=== PATIENT | female | born 1980 | race Caucasian/White ===

== ENCOUNTER 2018-12-31 14:31 | Inpatient (IN) | payer OTHER ==
[2018-12-31 17:13] VITALS: BMI 30.5
--- NOTE | 2018-12-31 17:35 | HP ---
CIWA Score Nausea/Vomitin (vomit x2) Muscle Tremors: None Anxiety: 2 Agitation: 0-Normal Activity Paroxysmal Sweats: No Perspiration Orientation: 0-Oriented Tacttile Disturbances: 0-None Auditory Disturbances: 2-Mild Harshness/Frighten Visual Disturbances: 2-Mild Sensitivity Headache: 3-Moderate CIWA-Ar Total Score: 12 - Admission Criteria OAS Guidelines: Admission for Medically Managed Detox: Requires at least one of the followin. CIWA greater than 12 2. Seizures within the past 24 hours 3. Delirium tremens within the past 24 hours 4. Hallucinations within the past 24 hours 5. Acute intervention needed for co occurring medical disorder 6. Acute intervention needed for co occurring psychiatric disorder 7. Severe withdrawal that cannot be handled at a lower level of care (continued vomiting, continued diarrhea, abnormal vital signs) requiring intravenous medication and/or fluids 8. Patient presents the following: CIWA greater than 12, Acute intervention needed for co-occurring med or psych disorder Admission Criteria Met: Admission criteria met Admission ROS S - HPI Chief Complaint: " I need help" Allergies/Adverse Reactions: Allergies Allergy/AdvReac Type Severity Reaction Status Date / Time cephalexin [From Keflex] AdvReac Severe Verified 12/31/18 16:53 buspirone [From BuSpar] AdvReac Verified 12/31/18 16:53 haloperidol AdvReac Verified 12/31/18 16:55 History of Present Illness: 38 yo female with hx of nicotine , alcohol, xanax, crack /cocaine dependence is here seeking detox. MMTP Klaudia Young MMTP on methadone 120 mg, last dose today. PMHX: OA, seizure d/o reports no meds. Seizure, last seizure two months ago. Psych: anxiety , ADHD, depression on meds. Reports hx of suicide attempt x2 , with last attempt six months ago and admission to psych taylor at [facility]. Denies blackouts. Exam Limitations: No Limitations - Ebola screening Have you traveled outside of the country in the last 21 days: No (N) Have you had contact with anyone from an Ebola affected area: No Do you have a fever: No - Review of Systems Constitutional: Chills, Loss of Appetite, Weakness, Unintentional Wgt. Loss EENT: reports: No Symptoms Reported Respiratory: reports: No Symptoms reported Cardiac: reports: No Symptoms Reported GI: reports: Diarrhea, Nausea, Poor Appetite, Poor Fluid Intake, Vomiting : reports: No Symptoms Reported Musculoskeletal: reports: Back Pain Integumentary: reports: No Symptoms Reported Neuro: reports: Headache Endocrine: reports: Increased Thirst Hematology: reports: No Symptoms Reported Psychiatric: reports: Orientated x3, Depressed Other Systems: Reviewed and Negative Patient History - Patient Medical History Hx Anemia: No Hx Asthma: No Hx Chronic Obstructive Pulmonary Disease (COPD): No Hx Cancer: No Hx Cardiac Disorders: No Hx Congestive Heart Failure: No Hx Hypertension: No Hx Hypercholesterolemia: No Hx Pacemaker: No HX Cerebrovascular Accident: No Hx Seizures: Yes (no meds, two months ago) Hx Dementia: No Hx Diabetes: No Hx Gastrointestinal Disorders: No Hx Liver Disease: No Hx Genitourinary Disorders: No Hx Sexually Transmitted Disorders: No Hx Renal Disease (ESRD): No Hx Thyroid Disease: No Hx Hepatitis C: No Hx Depression: Yes Hx Suicide Attempt: Yes (x 2, six months) Hx Bipolar Disorder: No Hx Schizophrenia: No - Patient Surgical History Past Surgical History: Yes Other Surgical History: Gallbladder removal - PPD History Previous Implant?: No Documented Results: Negative w/o proof PPD to be Administered?: Yes - Reproductive History Patient is a Female of Child Bearing Age (11 -55 yrs old): Yes Last Menstrual Period: 09/22/18 Patient : No - Smoking Cessation Smoking history: Current every day smoker Have you smoked in the past 12 months: Yes Aproximately how many cigarettes per day: 20 Hx Chewing Tobacco Use: No Initiated information on smoking cessation: Yes 'Breaking Loose' booklet given: 12/31/18 - Substance & Tx. History Hx Alcohol Use: Yes Hx Substance Use: Yes Substance Use Type: Alcohol Hx Substance Use Treatment: Yes (Last detox in " [place] several months ago") - Substances abused Alcohol Substance route: Oral Frequency: Daily Amount used: 2 bottles of yuko or 4 Locos Age of first use: 18 Date of last use: 12/31/18 Alprazolam (Xanax) Substance route: Oral Frequency: 3-6 times per week Amount used: about 4 mg total Age of first use: 35 Date of last use: 12/25/18 Other Other (specify): Klonopin Substance route: Oral Frequency: Daily Amount used: 10 t0 12 mg Age of first use: 37 Date of last use: 12/28/18 Cocaine Substance route: Smoking Frequency: 1-2 times per week Amount used: half a gram Age of first use: 32 Date of last use: 12/25/18 Family Disease History - Family Disease History Family History: Denies Admission Physical Exam [facility] - Vital Signs Vital Signs: Vital Signs - 24 hr 12/31/18 16:59 Temperature 97.0 F L Pulse Rate 87 Respiratory 14 Rate Blood Pressure 108/64 - Physical General Appearance: Yes: Disheveled, Alcohol on Breath, Obese, Sweating, Other ( sleepy and nodding attributes to alcohol use with methadone) HEENTM: Yes: Hearing grossly Normal, Normal ENT Inspection, Normocephalic, Normal Voice, FER, Pharynx Normal, Tm's normal Respiratory: Yes: Chest Non-Tender, Lungs Clear, Normal Breath Sounds, No Respiratory Distress, No Accessory Muscle Use Neck: Yes: Within Normal Limits Breast: Yes: Breast Exam Deferred Cardiology: Yes: Regular Rhythm, Regular Rate Abdominal: Yes: Normal Bowel Sounds, Non Tender, Flat, Soft Genitourinary: Yes: Within Normal Limits Back: Yes: Normal Inspection Musculoskeletal: Yes: full range of Motion, Gait Steady, Pelvis Stable, Back pain Extremities: Yes: Normal Capillary Refill, Normal Inspection, Normal Range of Motion, Non-Tender Neurological: Yes: clinical quality assurance specialist II-XII NML intact, Fully Oriented, Alert, Motor Strength 5/5, Depressed Affect Integumentary: Yes: Normal Color, Warm, Diaphoresis Lymphatic: Yes: Within Normal Limits - Diagnostic (1) Alcohol dependence with uncomplicated withdrawal Current Visit: Yes Status: Acute (2) ADHD Current Visit: Yes Status: Chronic Qualifiers: Attention deficit-hyperactivity disorder type: unspecified Qualified Code(s ): F90.9 - Attention-deficit hyperactivity disorder, unspecified type (3) Seizure Current Visit: Yes Status: Acute (4) Arthritis Current Visit: Yes Status: Acute (5) Opioid dependence on agonist therapy Current Visit: Yes Status: Chronic Comment: on methadone maintace 120 mg qd , alst dose today , dose pending verification (6) Nicotine dependence Current Visit: Yes Status: Chronic Qualifiers: Nicotine product type: cigarettes Cleared for Admission [facility] - Detox or Rehab [facility] Level of Care: Medically Managed Detox Regimen/Protocol: Librium Breathalyzer - Breathalyzer Breathalyzer: 0 POC Urine test - Test device test lot number: [id number] Expiration date: 05/22/20 - Control test control: Yes - Result Urine Test Results: Negative - NO line present Urine Drug Screen - Test Device Lot number: [id number] Expiration date: 12/20/19 - Control Is test valid?: Yes - Results Drug screen NEGATIVE: No Urine drug screen results: MTD-Methadone Inpatient Rehab Admission - Rehab Decision to Admit Inpatient rehab admission?: No
[2018-12-31] MEDS ORDERED: MAGNESIUM HYDROX 2400MG/30ML ORAL SUSPENSION 30 ML CUP PO PRN ×2 (17:54→18:10)
[2018-12-31] MEDS ORDERED: MELATONIN 5 MG TABLETS PO PRN (17:54)
[2018-12-31] MEDS ORDERED: NICOTINE POLACRILEX 2 MG GUM BUC PRN (17:54)
[2018-12-31] MEDS ORDERED: BISMUTH SUBSALICYLATE 524 MG/30 ML UD PO PRN (17:54)
[2018-12-31] MEDS ORDERED: METHOCARBAMOL 500 MG TABLET PO PRN (17:54)
[2018-12-31] MEDS ORDERED: MAGNESIUM CITRATE 300 ML BOTTLE PO PRN (17:54)
[2018-12-31] MEDS ORDERED: MAG HYDROX/AL HYDROX/SIMETH 30 ML UNIT-DOSE CUP PO PRN (17:54)
[2018-12-31] MEDS ORDERED: MENTHOL/PHENOL 1 EACH UD MM PRN (17:54)
[2018-12-31] MEDS ORDERED: ACETAMINOPHEN 325 MG TABLET (FP) PO PRN ×2 (17:54)
[2018-12-31] MEDS: chlordiazePOXIDE HCL 10 MG CAPSULE PO PRN (19:08)
[2018-12-31] MEDS: chlordiazePOXIDE HCL 25 MG CAPSULE PO SCH (22:03)
[2018-12-31] MEDS: THIAMINE HCL 100 MG TABLET (FP) PO SCH (22:03)
[2018-12-31 23:35] LABS: URINE APPEARANCE Clear; URINE BILIRUBIN Negative (NEGATIVE); URINE COLOR Yellow; URINE GLUCOSE (UA) Negative (NEGATIVE); URINE KETONE Negative (NEGATIVE); URINE LEUK ESTERASE 1+ (NEGATIVE); URINE NITRITE Negative (NEGATIVE); URINE PROTEIN Negative (NEGATIVE); URINE UROBILINOGEN 0.2 mg/dL (0.2-1.0)
[2018-12-31 23:55] LABS: URINE BACTERIA FEW /hpf (NEGATIVE); URINE RBC 0 /hpf (0-4)
[2019-01-01] MEDS: chlordiazePOXIDE HCL 25 MG CAPSULE PO SCH ×2 (05:55→12:32)
[2019-01-01] MEDS: hydrOXYzine PAMOATE 25 MG CAPSULE (FP) PO PRN ×2 (08:56→17:14)
[2019-01-01 09:50] LABS: HEMATOCRIT 35.2 % (32.4-45.2); MCH 30.8 pg (25.7-33.7); MCHC 34.1 g/dl (32.0-36.0); MEAN CELL VOLUME 90.2 fl (80-96); MEAN PLT VOLUME 8.7 fl (7.5-11.1); PLATELET COUNT 218 K/MM3 (134-434); RBC 3.91 M/mm3 (3.60-5.2); RDW 15.1 % (11.6-15.6); WHITE BLOOD COUNT 4.7 K/mm3 (4.0-10.0)
[2019-01-01 10:04] LABS: ALBUMIN 3.4 g/dl (3.4-5.0); ALK PHOS 49 U/L (45-117); ANION GAP 6 MMOL/L (8-16); BILIRUBIN,TOTAL 0.2 mg/dL (0.2-1); BLOOD UREA NITROGEN 15 mg/dL (7-18); CALCIUM 8.6 mg/dL (8.5-10.1); CHLORIDE 106 mmol/L (98-107); CO2 28 mmol/L (21-32); CREATININE 0.8 mg/dL (0.55-1.3); GLUCOSE,RANDOM 95 mg/dL (74-106); POTASSIUM 4.4 mmol/L (3.5-5.1); SGOT/AST 15 U/L (15-37); SGPT/ALT 14 U/L (13-61); SODIUM 140 mmol/L (136-145); TOT PROT 6.3 g/dl (6.4-8.2)
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
[2019-01-01] MEDS: NICOTINE 14 MG/24 HOURS TOPICAL PATCH TD SCH (10:18)
[2019-01-01] MEDS: PRENATAL VITAMINS W/ FOLIC ACID TABLET (FP) PO SCH (10:19)
[2019-01-01] MEDS ORDERED: METHADONE HCL 40 MG DISPERSABLE TABLET PO ONE (10:30)
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
--- NOTE | 2019-01-01 13:44 | EKG ---
Test Reason : Blood Pressure : / mmHG Vent. Rate : 075 BPM Atrial Rate : 075 BPM P-R Int : 158 ms QRS Dur : 082 ms QT Int : 424 ms P-R-T Axes : 069 052 050 degrees QTc Int : 473 ms NORMAL SINUS RHYTHM WITH SINUS ARRHYTHMIA CANNOT RULE OUT ANTERIOR INFARCT , AGE UNDETERMINED ABNORMAL ECG NO PREVIOUS ECGS AVAILABLE Confirmed by HENRY MUHAMMAD MD ([id number]) on 01/01/2019 1:44:33 PM Referred By: Confirmed By:HENRY MUHAMMAD MD
--- NOTE | 2019-01-01 14:01 | PN ---
[facility] CIWA - CIWA Score Nausea/Vomitin-No Nausea/No Vomiting Muscle Tremors: 4-Moderate,w/Arms Extend Anxiety: 4-Mod. Anxious/Guarded Agitation: 4-Moderately Restless Paroxysmal Sweats: 3 Orientation: 0-Oriented Tacttile Disturbances: 0-None Auditory Disturbances: 0-None Visual Disturbances: 0-None Headache: 0-None Present CIWA-Ar Total Score: 15 B[facility] Progress Note (SOAP) Subjective: anxiety shakes sweats irritable agitation Objective: 01/01/19 14:00 Vital Signs Temperature 98.1 F 01/01/19 10:33 Pulse Rate 84 01/01/19 10:33 Respiratory Rate 18 01/01/19 10:33 Blood Pressure 120/78 01/01/19 10:33 O2 Sat by Pulse Oximetry (%) Laboratory Tests 12/31/18 01/01/19 01/01/19 22:15 07:00 07:00 WBC 4.7 RBC 3.91 Hgb 12.0 Hct 35.2 MCV 90.2 MCH 30.8 MCHC 34.1 RDW 15.1 Plt Count 218 MPV 8.7 Sodium 140 Potassium 4.4 Chloride 106 Carbon Dioxide 28 Anion Gap 6 L BUN 15 Creatinine 0.8 Creat Clearance w eGFR 81.16 Random Glucose 95 Calcium 8.6 Total Bilirubin 0.2 AST 15 ALT 14 Alkaline Phosphatase 49 Total Protein 6.3 L Albumin 3.4 Urine Color Yellow Urine Appearance Clear Urine pH 5.0 Ur Specific [place] <= 1.005 L Urine Protein Negative Urine Glucose (UA) Negative Urine Ketones Negative Urine Blood Negative Urine Nitrite Negative Urine Bilirubin Negative Urine Urobilinogen 0.2 Ur Leukocyte Esterase 1+ H Urine WBC (Auto) 5-10 Urine RBC (Auto) 0 U Epithel Cells (Auto) 2-5 Urine Bacteria (Auto) Few RPR Titer 01/01/19 07:00 WBC RBC Hgb Hct MCV MCH MCHC RDW Plt Count MPV Sodium Potassium Chloride Carbon Dioxide Anion Gap BUN Creatinine Creat Clearance w eGFR Random Glucose Calcium Total Bilirubin AST ALT Alkaline Phosphatase Total Protein Albumin Urine Color Urine Appearance Urine pH Ur Specific [place] Urine Protein Urine Glucose (UA) Urine Ketones Urine Blood Urine Nitrite Urine Bilirubin Urine Urobilinogen Ur Leukocyte Esterase Urine WBC (Auto) Urine RBC (Auto) U Epithel Cells (Auto) Urine Bacteria (Auto) RPR Titer Nonreactive aaox3 ambulating no acute distress Assessment: 01/01/19 14:00 withdrawal sx Plan: continue detox increase fluids
[2019-01-01] MEDS ORDERED: GABAPENTIN 300 MG CAPSULE (FP) PO ONE (15:05)
[2019-01-01] MEDS: chlordiazePOXIDE HCL 10 MG CAPSULE PO PRN (17:14)
--- NOTE | 2019-01-01 18:10 | PN ---
[facility] Progress Note Note: Psychiatric nurse practitoner note: Patient with a history of seizure disorder. Last seizure was two months ago. As per patient, the cause of her seizures are unknown. She also reports additional seizures when withdrawing from alcohol. She is currently not prescribed anticonvulsants for seizures and was accepting wellbutrin 100mg BID. Due to h/o seizures, Wellbutrin will not be ordered as it is contraindicated. Patient is currently prescribed gabapentin 600mg TID but reports taking it for chronic pain. As per external records patient has been prescribed keppra in the past but is no longer accepting that medication. Wellbutrin 150mg XL will be D/C. Patient and nursing staff informed.
[2019-01-01] MEDS: chlordiazePOXIDE 5 MG CAPSULE PO SCH (21:59)
[2019-01-01] MEDS: THIAMINE HCL 100 MG TABLET (FP) PO SCH (21:59)
[2019-01-01] MEDS: IBUPROFEN 400 MG TABLET (FP) PO PRN (21:59)
[2019-01-01] MEDS ORDERED: PATIENT'S OWN MEDICATION (NON-FORMULARY) (Gabapentin [Neurontin] 600 MG) PO SCH (22:00)
[2019-01-01] MEDS ORDERED: GABAPENTIN 900 MG PO SCH (22:00)
[2019-01-01] MEDS: traZODone HCL 50 MG TABLET (FP) PO SCH (22:09)
[2019-01-01] MEDS: GABAPENTIN 300 MG CAPSULE (FP) PO SCH (22:32)
[2019-01-02] MEDS: METHADONE HCL 40 MG DISPERSABLE TABLET PO SCH (05:33)
[2019-01-02] MEDS: chlordiazePOXIDE 5 MG CAPSULE PO SCH ×2 (05:35→12:10)
[2019-01-02] MEDS: GABAPENTIN 300 MG CAPSULE (FP) PO SCH ×3 (05:36→22:18)
--- NOTE | 2019-01-02 10:05 | PN ---
S CIWA - CIWA Score Nausea/Vomitin Muscle Tremors: 2 Anxiety: 2 Agitation: 2 Paroxysmal Sweats: 2 Orientation: 0-Oriented Tacttile Disturbances: 2-Mild Itch/Numbness/Burn Auditory Disturbances: 0-None Visual Disturbances: 0-None Headache: 2-Mild CIWA-Ar Total Score: 14 S Progress Note (SOAP) Subjective: Shakes, sweats, headache, nausea w/ abdominal cramps Objective: 01/02/19 10:04 Vital Signs - 8 hr 01/02/19 01/02/19 03:30 06:33 Temperature 97.7 F Pulse Rate 83 Respiratory 18 18 Rate Blood Pressure 103/54 L Laboratory Last Values WBC 4.7 K/mm3 (4.0-10.0) 01/01/19 07:00 RBC 3.91 M/mm3 (3.60-5.2) 01/01/19 07:00 Hgb 12.0 GM/dL (10.7-15.3) 01/01/19 07:00 Hct 35.2 % (32.4-45.2) 01/01/19 07:00 MCV 90.2 fl (80-96) 01/01/19 07:00 MCH 30.8 pg (25.7-33.7) 01/01/19 07:00 MCHC 34.1 g/dl (32.0-36.0) 01/01/19 07:00 RDW 15.1 % (11.6-15.6) 01/01/19 07:00 Plt Count 218 K/MM3 (134-434) 01/01/19 07:00 MPV 8.7 fl (7.5-11.1) 01/01/19 07:00 Sodium 140 mmol/L (136-145) 01/01/19 07:00 Potassium 4.4 mmol/L (3.5-5.1) 01/01/19 07:00 Chloride 106 mmol/L (98-107) 01/01/19 07:00 Carbon Dioxide 28 mmol/L (21-32) 01/01/19 07:00 Anion Gap 6 MMOL/L (8-16) L 01/01/19 07:00 BUN 15 mg/dL (7-18) 01/01/19 07:00 Creatinine 0.8 mg/dL (0.55-1.3) 01/01/19 07:00 Creat Clearance w eGFR 81.16 (>60) 01/01/19 07:00 Random Glucose 95 mg/dL (74-106) 01/01/19 07:00 Calcium 8.6 mg/dL (8.5-10.1) 01/01/19 07:00 Total Bilirubin 0.2 mg/dL (0.2-1) 01/01/19 07:00 AST 15 U/L (15-37) 01/01/19 07:00 ALT 14 U/L (13-61) 01/01/19 07:00 Alkaline Phosphatase 49 U/L (45-117) 01/01/19 07:00 Total Protein 6.3 g/dl (6.4-8.2) L 01/01/19 07:00 Albumin 3.4 g/dl (3.4-5.0) 01/01/19 07:00 Urine Color Yellow 12/31/18 22:15 Urine Appearance Clear 12/31/18 22:15 Urine pH 5.0 (5.0-8.0) 12/31/18 22:15 Ur Specific [place] <= 1.005 (1.010-1.035) L 12/31/18 22:15 Urine Protein Negative (NEGATIVE) 12/31/18 22:15 Urine Glucose (UA) Negative (NEGATIVE) 12/31/18 22:15 Urine Ketones Negative (NEGATIVE) 12/31/18 22:15 Urine Blood Negative (NEGATIVE) 12/31/18 22:15 Urine Nitrite Negative (NEGATIVE) 12/31/18 22:15 Urine Bilirubin Negative (NEGATIVE) 12/31/18 22:15 Urine Urobilinogen 0.2 mg/dL (0.2-1.0) 12/31/18 22:15 Ur Leukocyte Esterase 1+ (NEGATIVE) H 12/31/18 22:15 Urine WBC (Auto) 5-10 /hpf (0-5) 12/31/18 22:15 Urine RBC (Auto) 0 /hpf (0-4) 12/31/18 22:15 U Epithel Cells (Auto) 2-5 /HPF (0-5/HPF) 12/31/18 22:15 Urine Bacteria (Auto) Few /hpf (NEGATIVE) 12/31/18 22:15 POC Urine HCG, Qual Negative 12/31/18 17:26 RPR Titer Nonreactive (NONREACTIVE) 01/01/19 07:00 Labs noted Assessment: 01/02/19 10:05 Withdrawal sx Plan: Continue detox
[2019-01-02] MEDS: PRENATAL VITAMINS W/ FOLIC ACID TABLET (FP) PO SCH (10:06)
[2019-01-02] MEDS: NICOTINE 14 MG/24 HOURS TOPICAL PATCH TD SCH (10:07)
[2019-01-02] MEDS: hydrOXYzine PAMOATE 25 MG CAPSULE (FP) PO PRN (13:24)
[2019-01-02] MEDS: chlordiazePOXIDE HCL 10 MG CAPSULE PO PRN (16:56)
[2019-01-02] MEDS ORDERED: chlordiazePOXIDE HCL 10 MG CAPSULE PO PRN (21:00)
[2019-01-02] MEDS: chlordiazePOXIDE HCL 10 MG CAPSULE PO SCH (22:18)
[2019-01-02] MEDS: traZODone HCL 50 MG TABLET (FP) PO SCH (22:18)
[2019-01-02] MEDS: THIAMINE HCL 100 MG TABLET (FP) PO SCH (22:19)
[2019-01-03] MEDS: METHADONE HCL 40 MG DISPERSABLE TABLET PO SCH (05:17)
[2019-01-03] MEDS: chlordiazePOXIDE HCL 10 MG CAPSULE PO SCH ×3 (05:17→22:18)
[2019-01-03] MEDS: GABAPENTIN 300 MG CAPSULE (FP) PO SCH ×3 (05:17→22:18)
[2019-01-03] MEDS: IBUPROFEN 400 MG TABLET (FP) PO PRN (05:20)
[2019-01-03] MEDS: PRENATAL VITAMINS W/ FOLIC ACID TABLET (FP) PO SCH (09:32)
[2019-01-03] MEDS: hydrOXYzine PAMOATE 25 MG CAPSULE (FP) PO PRN ×3 (09:36→22:18)
[2019-01-03] MEDS: NICOTINE 14 MG/24 HOURS TOPICAL PATCH TD SCH (09:48)
--- NOTE | 2019-01-03 13:33 | PN ---
[facility] Progress Note Note: PATIENT CONTINUES WITH DETOX REGIMEN FOR ETOH/BZO WITHDRAWAL. PATIENT C/O ANXIETY AND CONSTIPATION. Vital Signs Temperature 97.5 F L 01/03/19 09:30 Pulse Rate 90 01/03/19 09:30 Respiratory Rate 16 01/03/19 09:30 Blood Pressure 101/58 L 01/03/19 09:30 O2 Sat by Pulse Oximetry (%) Laboratory Tests 12/31/18 12/31/18 01/01/19 17:26 22:15 07:00 WBC 4.7 RBC 3.91 Hgb 12.0 Hct 35.2 MCV 90.2 MCH 30.8 MCHC 34.1 RDW 15.1 Plt Count 218 MPV 8.7 Sodium Potassium Chloride Carbon Dioxide Anion Gap BUN Creatinine Creat Clearance w eGFR Random Glucose Calcium Total Bilirubin AST ALT Alkaline Phosphatase Total Protein Albumin Urine Color Yellow Urine Appearance Clear Urine pH 5.0 Ur Specific [place] <= 1.005 L Urine Protein Negative Urine Glucose (UA) Negative Urine Ketones Negative Urine Blood Negative Urine Nitrite Negative Urine Bilirubin Negative Urine Urobilinogen 0.2 Ur Leukocyte Esterase 1+ H Urine WBC (Auto) 5-10 Urine RBC (Auto) 0 U Epithel Cells (Auto) 2-5 Urine Bacteria (Auto) Few POC Urine HCG, Qual Negative RPR Titer 01/01/19 01/01/19 07:00 07:00 WBC RBC Hgb Hct MCV MCH MCHC RDW Plt Count MPV Sodium 140 Potassium 4.4 Chloride 106 Carbon Dioxide 28 Anion Gap 6 L BUN 15 Creatinine 0.8 Creat Clearance w eGFR 81.16 Random Glucose 95 Calcium 8.6 Total Bilirubin 0.2 AST 15 ALT 14 Alkaline Phosphatase 49 Total Protein 6.3 L Albumin 3.4 Urine Color Urine Appearance Urine pH Ur Specific [place] Urine Protein Urine Glucose (UA) Urine Ketones Urine Blood Urine Nitrite Urine Bilirubin Urine Urobilinogen Ur Leukocyte Esterase Urine WBC (Auto) Urine RBC (Auto) U Epithel Cells (Auto) Urine Bacteria (Auto) POC Urine HCG, Qual RPR Titer Nonreactive PE: ALERT AND ORIENTED X 3 SKIN WARM AND DRY GI SOFT, NT, ND EXT NO VISIBLE TREMORS, FULL ROM, AMB AD MAGGIE ANXIOUS A/P: WITHDRAWAL SX CONSTIPATION CONTINUE DETOX ENCOURAGE [place] FLUIDS MAGNESIUM CITRATE GIVEN PER PRN ORDER CONTINUE TO MONITOR CLINICALLY
[2019-01-03] MEDS: THIAMINE HCL 100 MG TABLET (FP) PO SCH (22:18)
[2019-01-03] MEDS: traZODone HCL 50 MG TABLET (FP) PO SCH (22:19)
[2019-01-04] MEDS: GABAPENTIN 300 MG CAPSULE (FP) PO SCH (05:21)
[2019-01-04] MEDS: METHADONE HCL 40 MG DISPERSABLE TABLET PO SCH (05:21)
[2019-01-04] MEDS: hydrOXYzine PAMOATE 25 MG CAPSULE (FP) PO PRN (05:51)
[2019-01-04] MEDS: IBUPROFEN 400 MG TABLET (FP) PO PRN (05:51)
--- NOTE | 2019-01-04 08:59 | DS ---
[facility] Detox Discharge Summary Admission Date: 12/31/18 Discharge Date: 01/04/19 - History Present History: Alcohol Dependence - Physical Exam Results Vital Signs: Vital Signs Temperature 96.4 F L 01/04/19 03:00 Pulse Rate 93 H 01/04/19 03:00 Respiratory Rate 18 01/04/19 03:30 Blood Pressure 118/67 01/04/19 03:00 O2 Sat by Pulse Oximetry (%) - Treatment Hospital Course: Detox Protocol Followed, Detoxed Safely, Responded well, Discharged Condition Good, Rehab Referral Accepted - Medication Discharge Medications: Ambulatory Orders Bupropion HCl [Wellbutrin -] 150 mg PO BID 12/31/18 Gabapentin [Neurontin] 600 mg PO TID 12/31/18 Lisdexamfetamine Dimesylate [Vyvanse] 60 mg PO DAILY 12/31/18 Methadone [Dolophine -] 120 mg PO DAILY 12/31/18 Trazodone HCl 150 mg PO HS 01/01/19 - Diagnosis (1) Alcohol dependence with uncomplicated withdrawal Current Visit: Yes Status: Chronic (2) Arthritis Current Visit: Yes Status: Chronic (3) Seizure Current Visit: Yes Status: Acute (4) Substance induced mood disorder Current Visit: Yes Status: Acute (5) Nicotine dependence Current Visit: Yes Status: Chronic Qualifiers: Nicotine product type: cigarettes Substance use status: uncomplicated Qualified Code(s): F17.210 - Nicotine dependence, cigarettes, uncomplicated (6) Opioid dependence on agonist therapy Current Visit: Yes Status: Chronic (7) ADHD Current Visit: No Status: Chronic Qualifiers: Attention deficit-hyperactivity disorder type: unspecified Qualified Code(s ): F90.9 - Attention-deficit hyperactivity disorder, unspecified type - AMA Did Patient Leave Against Medical Advice: No ([facility])
[2019-01-04] MEDS ORDERED: LIDOCAINE 5% TOPICAL PATCH TP ONE (09:21)
[2019-01-04 09:51] VITALS: BP 123/62; PULSE 113; TEMP 98.1
[2019-01-04] MEDS: PRENATAL VITAMINS W/ FOLIC ACID TABLET (FP) PO SCH (10:24)
[2019-01-04] MEDS: NICOTINE 14 MG/24 HOURS TOPICAL PATCH TD SCH (10:25)
[2019-01-04] MEDS ORDERED: LIDOCAINE PATCH REMOVAL MC SCH (22:00)
== END 2019-01-04 12:14 | disposition home or self-care (01) | DRG 773 ==
LOC: YASAS 14:31 → Y6N 18:09
PROVIDERS: ADMIT Surgery; ATTEND Surgery
PROC: HZ2ZZZZ Detoxification Services for Substance Abuse Treatment (ICD-10-PCS; principal; 2018-12-31)
DX: F10.230 Alcohol dependence with withdrawal, uncomplicated (principal); F11.20 Opioid dependence, uncomplicated; F17.210 Nicotine dependence, cigarettes, uncomplicated; F19.24 Other psychoactive substance dependence with psychoactive substance-induced mood disorder; F32.9 Major depressive disorder, single episode, unspecified; F90.9 Attention-deficit hyperactivity disorder, unspecified type; M12.9 Arthropathy, unspecified; G40.909 Epilepsy, unspecified, not intractable, without status epilepticus; Z91.5 Personal history of self-harm; Z88.8 Allergy status to other drugs, medicaments and biological substances; Z59.0 Homelessness
CPT/HCPCS: 36415; 80053; 81003; 81025; 85027; 86593; 93005; 93010